=== PATIENT | male | born 1970 | race Caucasian/White ===

== ENCOUNTER → 2021-03-30 | Outpatient (CLI) | payer BC, SELFPAY | END | disposition home or self-care (01) | PROVIDERS: Referring Provider Physician Assistant; Visit Provider Physician Assistant | DX: L08.9 Local infection of the skin and subcutaneous tissue, unspecified (principal); I89.0 Lymphedema, not elsewhere classified; L30.9 Dermatitis, unspecified | CPT/HCPCS: 87070; 87077; 87186; 87205 ==

== ENCOUNTER → 2023-03-09 | Outpatient (CLI) | payer BC, SELFPAY ==
--- NOTE | 2023-03-09 13:10 | NEURO ---
NCS and/or EMG Patient Report Ordering Doctor: ANDREWS VEGA DATE OF SERVICE: 03/09/23 Marshall presents for electrodiagnostic testing of the upper limbs. He reports numbness tingling and weakness in both hands. Electrodiagnostic findings: Right median motor nerve demonstrates prolonged distal latency with normal amplitude and reduced conduction velocity. Left median motor nerve demonstrates prolonged latency with normal amplitude and reduced conduction velocity. Ulnar motor response is within normal limits bilaterally. Prolonged median F-wave noted bilaterally. Prolonged median sensory latency at the wrist bilaterally. Needle EMG testing was performed in the upper limbs. All muscles tested showed no evidence of denervation with normal motor unit action potentials. Electrodiagnostic impression: This is an abnormal study in the upper limbs 1. Electrodiagnostic findings suggestive of bilateral median mononeuropathy. This is consistent with a moderate bilateral carpal tunnel syndrome. 2. No electrodiagnostic evidence is noted for cervical radiculopathy. Multi Select Codes Neurology Neurology Interp Codes: 89226-43 Musc test done w/n test comp (interp) (2) and 40748-70 Nrv cndj test 11-12 studies (interp)
== END | disposition home or self-care (01) ==
LOC: PSN 07:05
PROVIDERS: Referring Provider Nurse Practitioner Adult Health; Visit Provider Nurse Practitioner Adult Health
DX: G56.03 Carpal tunnel syndrome, bilateral upper limbs (principal)
CPT/HCPCS: 95886; 95912

== ENCOUNTER → 2023-04-06 | Outpatient (CLI) | payer BC, SELFPAY ==
--- NOTE | 2023-04-06 11:30 | NEURO ---
NCS and/or EMG Patient Report Ordering Doctor: ANDREWS VEGA DATE OF SERVICE: 04/06/23 Marshall presents for electrodiagnostic testing of the lower limbs. Reports numbness and tingling both legs, primarily below the knees. Electrodiagnostic findings: Right peroneal motor nerve demonstrates normal distal latency, amplitude with reduced conduction velocity. Left peroneal motor nerve demonstrates normal distal latency and amplitude with reduced conduction velocity. Reduced right tibial motor conduction velocity. Normal left tibial motor response. Borderline prolonged right tibial and left peroneal F waves. H reflex is prolonged bilaterally. Sensory response in the left sural distribution demonstrates a mildly prolonged latency. Patient demonstrated poor tolerance for the needle examination. Testing was performed in the left tibialis anterior and left gastrocnemius and within normal limits in those 2 muscles. At this time, the patient refused with further testing. Electrodiagnostic assessment: This is an abnormal study in the lower limbs. 1. 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 Findings are mild in nature based on nerve conduction studies. However testing is somewhat limited due to an inability to complete the needle portion of the examination. Multi Select Codes Neurology Neurology Interp Codes: 68336-88 Musc test done w/n test comp (interp) (2) and 33813-48 Nrv cndj test 9-10 studies (interp)
== END | disposition home or self-care (01) ==
LOC: PSN 09:19
PROVIDERS: Referring Provider Nurse Practitioner Adult Health; Visit Provider Nurse Practitioner Adult Health
DX: G62.9 Polyneuropathy, unspecified (principal); R20.0 Anesthesia of skin; R20.2 Paresthesia of skin
CPT/HCPCS: 95885; 95886; 95911